=== PATIENT | female | born 1985 | race Caucasian/White ===

== ENCOUNTER 2021-12-21 15:44 | Emergency (ER) | payer OTHER, SELFPAY ==
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
[2021-12-21 15:55] VITALS: BP 137/77; PULSE 79; RESP 19; TEMP 36.1; O2SAT 98; BMI 27.5
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
--- NOTE | 2021-12-21 20:50 | PC.NURSE ---
Reviewed discharge instructions and pt verbalized understanding. Report to LON Pedersen
== END 2021-12-21 20:53 | disposition home or self-care (01) ==
PROVIDERS: Emergency Provider Emergency Medicine
DX: S13.4XXA Sprain of ligaments of cervical spine, initial encounter (principal); V43.52XA Car driver injured in collision with other type car in traffic accident, initial encounter; M54.50 Low back pain, unspecified; R10.2 Pelvic and perineal pain; M79.602 Pain in left arm; Y93.89 Activity, other specified; Y92.414 Local residential or business street as the place of occurrence of the external cause; Y99.8 Other external cause status
CPT/HCPCS: 70450; 72100; 72125; 72170; 99284